=== PATIENT | female | born 1995 | race Caucasian/White ===

== ENCOUNTER 2023-10-08 06:35 | Emergency (ER) | payer BC ==
[~2023-10-08] VITALS: Ht 157.5 cm; Wt 88.0 kg
[2023-10-08 06:50] VITALS: BP 101/71; PULSE 104; RESP 20; TEMP 98.2; O2SAT 95
[2023-10-08 07:39] LABS: BASOPHILS % (AUTO) 0.2 % (0.0-2.0); EOSINOPHILS # (AUTO) 0.2 K/uL (0-0.4); HEMATOCRIT 38.2 % (36-48); HEMOGLOBIN 13.1 g/dL (12.0-16.0); LYMPHOCYTES # (AUTO) 1.6 K/uL (2.5-16.5); LYMPHOCYTES % (AUTO) 12.9 % (20.5-51.1); MEAN CORPUSCULAR HEMOGLOBIN 30 pg (27-31); MEAN CORPUSCULAR HGB CONC 34 g/dL (33-37); MEAN CORPUSCULAR VOLUME 88.2 fL (80-94); MONOCYTES # (AUTO) 0.7 K/uL (0.8-1.0); NEUTROPHILS # (AUTO) 9.7 K/uL (1.8-7.7); NEUTROPHILS % (AUTO) 78.9 % (42.2-75.2); PLATELET COUNT (AUTO) 310 K/uL (140-450); RED BLOOD CELL COUNT(AUTO) 4.33 MIL/uL (4.20-5.40); RED CELL DISTRIBUTION WIDTH 12.9 % (11.6-13.7); WHITE BLOOD COUNT (AUTO) 12.3 K/uL (4.8-10.8)
[2023-10-08 07:45] LABS: BILIRUBIN,URINE NEGATIVE (NEGATIVE); BLOOD, URINE 3+ (NEGATIVE); LEUKOCYTE ESTERASE ,URINE 1+ (NEGATIVE); NITRITE, URINE POSITIVE (NEGATIVE); PROTEIN,URINE 1+ (NEGATIVE); UGLUCOSE NEGATIVE (NEGATIVE); UROBILINOGEN,URINE 0.2 EU/dL (0.2 - 1)
[2023-10-08 07:46] LABS: APPEARANCE,URINE HAZY (CLEAR)
[2023-10-08 07:48] LABS: BACTERIA,URINE 1+ /HPF (None Seen); RBC,URINE TOO NUMEROUS TO COUN /HPF (0-5)
[2023-10-08 07:49] LABS: SQUAMOUS EPITHELIAL CELL,UR 4-10 (MOD) /LPF (0-3 (FEW))
[2023-10-08 07:52] LABS: COLOR,URINE YELLOW (YELLOW)
[2023-10-08] MEDS: ONDANSETRON 4 MG/2 ML VIAL IVP ONE (07:53)
[2023-10-08] MEDS: KETOROLAC 30 MG/ML VIAL IVP ONE (07:53)
[2023-10-08 08:04] LABS: ANION GAP 15.8 (8-16); CALCIUM 8.9 mg/dL (8.5-10.1); CREATININE 0.8 mg/dL (0.6-1.3); POTASSIUM 3.8 mmol/L (3.5-5.1)
[2023-10-08 08:13] LABS: LACTIC ACID 0.9 mmol/L (0.4-2.0)
[2023-10-08] MEDS ORDERED: cefTRIAXone 1,000 MG VIAL ONE (08:46)
[2023-10-08] MEDS: NACL 0.9% 1,000 ML IV ONE (09:13)
[2023-10-08] MEDS ORDERED: ONDA-188 PO (11:09)
[2023-10-08] MEDS ORDERED: CEPH-588 PO (11:09)
[2023-10-08] MEDS ORDERED: NAPR-1704 PO (11:09)
[2023-10-08 11:20] VITALS: BP 106/67; PULSE 69; RESP 16; TEMP 98; O2SAT 100
== END 2023-10-08 11:20 | disposition home or self-care (01) ==
LOC: MED 06:35
DX: N39.0 Urinary tract infection, site not specified (principal); N20.0 Calculus of kidney; Z96.0 Presence of urogenital implants; Z79.899 Other long term (current) drug therapy
CPT/HCPCS: 36415; 74176; 80048; 81001; 81025; 83605; 85025; 87040; 87086; 96361; 96374; 96375; 99285; J0696; J1885; J2405; J7030